=== PATIENT | female | born 1990 | race African-American/Black ===

== ENCOUNTER 2020-01-19 23:29 | Observation (INO) | payer MEDICAID ==
[~2020-01-19] VITALS: Ht 160 cm; Wt 65.8 kg
[2020-01-20] MEDS ORDERED: LACTATED RINGERS 1,000 ML IV SCH (00:30)
[2020-01-20] MEDS ORDERED: CEFAZOLIN SODIUM 1000MG/VIAL IV ONE (00:30)
[2020-01-20] MEDS ORDERED: ACETAMINOPHEN 500MG TABLET PO ONE (00:30)
[2020-01-20] MEDS ORDERED: CEFAZOLIN 2,000 MG in DEXT 5% WATER 100 ML IV SCH (01:00)
[2020-01-20] MEDS ORDERED: PNV1TABL50 PO (01:14)
== END 2020-01-20 01:50 | disposition home or self-care (01) ==
LOC: 8 EST LDRP 23:29 → EDBD 23:29
PROVIDERS: ADMIT Obstetrics & Gynecology; ATTEND Obstetrics & Gynecology
DX: O26.892 Other specified pregnancy related conditions, second trimester (principal); R10.30 Lower abdominal pain, unspecified; M54.9 Dorsalgia, unspecified; Z3A.20 20 weeks gestation of pregnancy
CPT/HCPCS: 96365; 99281; G0378; J0690; J7060

== ENCOUNTER 2020-04-03 12:22 | Observation (INO) | payer BC, MEDICAID ==
[~2020-04-03] VITALS: Ht 162.6 cm; Wt 74.8 kg
[~2020-04-03 12:22] MED LIST: PNV1TABL50 PO
[2020-04-03] MEDS ORDERED: DEXT 5%/LACTATED RINGERS 1,000 ML IV SCH (13:30)
[2020-04-03] MEDS ORDERED: TERBUTALINE SULFATE 1MG/ML VIAL SUBCUT PRN (13:45)
[2020-04-03] MEDS: BETAMETHASONE ACET/BETAMET 30 MG/5 ML VIAL IM SCH (13:45)
[2020-04-03 14:20] LABS: CLARITY URINE CLEAR (CLEAR); COLOR URINE YELLOW (YELLOW); KETONES URINE TRACE (NEGATIVE); LEUKOCYTE ESTERASE URINE 2+ (NEGATIVE); NITRITE URINE NEGATIVE (NEGATIVE); OCCULT BLOOD URINE NEGATIVE (NEGATIVE); PROTEIN URINE TRACE (NEGATIVE)
[2020-04-03] MEDS ORDERED: CEFAZOLIN 2,000 MG in DEXT 5% WATER 100 ML IV NR (15:00)
== END 2020-04-03 15:35 | disposition home or self-care (01) ==
LOC: 8 EST LDRP 12:22
PROVIDERS: ADMIT Obstetrics & Gynecology; ATTEND Obstetrics & Gynecology
DX: O26.893 Other specified pregnancy related conditions, third trimester (principal); R10.9 Unspecified abdominal pain; N89.8 Other specified noninflammatory disorders of vagina; O26.853 Spotting complicating pregnancy, third trimester; Z3A.31 31 weeks gestation of pregnancy
CPT/HCPCS: 76805; 76818; 81003; 96365; 96372; 99281; G0378; J0690; J0702; J3105; J7060; 96360; 96361